=== PATIENT | male | born 1970 | race Caucasian/White ===

== ENCOUNTER 2023-01-14 09:01 | Outpatient (OUT) | payer BC, SELFPAY ==
[2023-01-14 09:25] LABS: Basophils Absolute Auto 0.1 10^3/uL (0.0-0.1); Basophils Percent Auto 0.8 % (0.2-2.0); Eosinophils Absolute Auto 0.3 10^3/uL (0.0-0.7); Eosinophils Percent Auto 2.3 % (0.9-7.0); Hematocrit 40.8 % (42.0-54.0); Hemoglobin 13.9 g/dL (14.0-18.0); Immature Granulocytes Abs Auto 0.03 10^3/uL (0.00-0.03); Immature Granulocytes Pct Auto 0.3 % (0.0-0.5); Lymphocytes Absolute Auto 2.2 10^3/uL (1.2-3.8); Lymphocytes Percent Auto 20.2 % (20.5-60.0); Mean Corpuscular HGB Conc 34.1 g/dL (29.9-35.2); Mean Corpuscular Hemoglobin 33.5 pg (25.9-34.0); Mean Corpuscular Volume 98.3 fL (80.0-94.0); Mean Platelet Volume 9.4 fL (9.5-13.5); Monocytes Absolute Auto 0.5 10^3/uL (0.3-0.8); Monocytes Percent Auto 4.9 % (1.7-12.0); Neutrophils Absolute Auto 7.7 10^3/uL (1.4-6.5); Neutrophils Percent Auto 71.5 % (43.0-75.0); Platelet Count 329 10^3/uL (150-450); Red Blood Count 4.15 10^6/uL (4.70-6.10); Red Cell Distribution Width 12.5 % (11.0-15.0); White Blood Count 10.7 10^3/uL (4.0-11.0)
[2023-01-14 10:02] LABS: Alanine Aminotransferase 18 U/L (16-63); Albumin Globulin Ratio 1.2; Albumin Level 3.9 g/dL (3.4-5.0); Alkaline Phosphatase 93 U/L (46-116); Anion Gap 9.9; Aspartate Amino Transferase 11 U/L (15-37); BUN Creatinine Ratio 11.9; Bilirubin Total 0.3 mg/dL (0.2-1.0); Calcium 9.3 mg/dL (8.5-10.1); Carbon Dioxide 30.7 mmol/L (21.0-32.0); Chloride 104 mmol/L (98-107); Chol HDL Ratio 4.6; Cholesterol 170 mg/dL (<=200); Estimated GFR (African America >60 (>=60); Estimated GFR (Non-African Ame >60 (>=60); Globulin 3.3 g/dL; Glucose 98 mg/dL (74-106); HDL Cholesterol 37 mg/dL (40-60); Potassium 3.6 mmol/L (3.5-5.1); Sodium 141 mmol/L (136-145); Total Protein 7.2 g/dL (6.4-8.2); Triglycerides 66 mg/dL (<=150); VLDL CHOLESTEROL 13.2 mg/dL
[2023-01-14 10:16] LABS: Estimated Average Glucose 105 mg/dL; Glycohemoglobin A1C 5.3 % (4.5-6.2)
[2023-01-14 10:41] LABS: Prostate Specific Antigen Scrn 0.62 ng/mL (<=4.00)
== END 2023-01-14 09:02 | disposition home or self-care (01) ==
PROVIDERS: PCP Family Medicine; Visit Provider Family Medicine
DX: Z00.00 Encounter for general adult medical examination without abnormal findings (principal); Z12.5 Encounter for screening for malignant neoplasm of prostate
CPT/HCPCS: 36415; 80053; 80061; 83036; 85025; G0103

== ENCOUNTER 2023-02-27 06:47 | Day surgery (SDC) | payer BC, SELFPAY ==
--- NOTE | 2023-02-27 | OP_ITS ---
OPERATION DATE: ??02/27/2023 PREOPERATIVE DIAGNOSIS:? Colorectal screening. POSTOPERATIVE DIAGNOSIS:? A 5 mm sigmoid polyp. PROCEDURE:? Colonoscopy to cecum with cold snare polypectomy x1. SURGEON:? Mauro Rojas M.D. ANESTHESIA:? Monitored anesthesia care. ESTIMATED BLOOD LOSS:? Less than 1 mL. INDICATIONS AND CONSENT:? Patient is a 53-year-old male presents for colorectal screening.? Indications, risks, benefits, alternatives of proceeding with colonoscopy were explained extensively to the patient, including the risks of bleeding, colon perforation or anesthetic complications.? All of his questions were answered.? Informed consent was obtained. PROCEDURE:? Patient brought to the operating room, placed in the left lateral decubitus position.? Monitored anesthesia care was provided.? Rectal exam was performed which showed no masses or blood.? The scope was inserted into the anal canal.? Under direct visualization was advanced.? With the aid of abdominal compression, it was advanced to the cecum where cecal markings were clearly identified.? Upon withdrawal of the scope, mucosal surfaces were carefully examined.? There were no mass lesions or inflammatory changes.? No significant diverticulosis.? In the sigmoid colon, at approximately 40 cm, there was noted to be a 5 mm sessile polyp that was removed with cold snare with good hemostasis.? The scope was retroflexed in the anal canal.? There were noted to be some prominent rectal veins.? No significant hemorrhoidal disease.? Scope was then withdrawn.? Patient tolerated procedure well, was sent to recovery room in good condition. likely f/u colonoscopy in 5 years, but will depend on pathology report. CC:? Pernell Mathew M.D. [facility]
[2023-02-27 07:01] VITALS: BP 140/90; PULSE 98; RESP 16; TEMP 36.6; O2SAT 96; BMI 21.1
[2023-02-27] MEDS: LACTATED RINGER'S SOLUTION 1,000 ML 50 ML IV (07:10)
[2023-02-27 07:48] VITALS: BP 114/70; PULSE 87; RESP 24; TEMP 36.8; O2SAT 99
[2023-02-27 08:03] VITALS: BP 127/85; PULSE 85; RESP 18; O2SAT 97
[2023-02-27 08:18] VITALS: BP 135/78; PULSE 76; RESP 18; O2SAT 97
== END 2023-02-27 08:20 | disposition home or self-care (01) ==
PROVIDERS: PCP Family Medicine; Visit Provider Surgery
PROC: (CPT 45385; principal; 2023-02-27 08:05)
DX: Z12.11 Encounter for screening for malignant neoplasm of colon (principal); D12.5 Benign neoplasm of sigmoid colon; I10 Essential (primary) hypertension; F17.210 Nicotine dependence, cigarettes, uncomplicated
CPT/HCPCS: 45385; 88305; J2704

== ENCOUNTER 2024-04-08 10:02 | Outpatient (OUT) | payer BC, SELFPAY ==
[2024-04-08 10:14] LABS: Basophils Absolute Auto 0.1 10^3/uL (0.0-0.1); Basophils Percent Auto 0.9 % (0.2-2.0); Eosinophils Absolute Auto 0.3 10^3/uL (0.0-0.7); Eosinophils Percent Auto 3.2 % (0.9-7.0); Hematocrit 41.2 % (42.0-54.0); Immature Granulocytes Abs Auto 0.02 10^3/uL (0.00-0.03); Immature Granulocytes Pct Auto 0.2 % (0.0-0.5); Lymphocytes Absolute Auto 2.4 10^3/uL (1.2-3.8); Lymphocytes Percent Auto 25.3 % (20.5-60.0); Mean Corpuscular Hemoglobin 33.3 pg (25.9-34.0); Mean Corpuscular Volume 98.1 fL (80.0-94.0); Mean Platelet Volume 9.2 fL (9.5-13.5); Monocytes Absolute Auto 0.5 10^3/uL (0.3-0.8); Monocytes Percent Auto 5.6 % (1.7-12.0); Neutrophils Absolute Auto 6.2 10^3/uL (1.4-6.5); Neutrophils Percent Auto 64.8 % (43.0-75.0); Platelet Count 332 10^3/uL (150-450); Red Cell Distribution Width 12.8 % (11.0-15.0); White Blood Count 9.6 10^3/uL (4.0-11.0)
--- OUTSIDE RECORDS SUMMARY | 2024-04-08 10:22 | XMS_ITS | CCD ---
Author Organization [facility] Care Team Providers Care Lasting Room Supervisor Name Role Phone REQUEST, DR NONE LISTED Attending Maria A MATHEW, DR MAIER Primary Care Unavailable REQUEST, NONE LISTED Admitting Unavaila javed REQUEST, NONE LISTED Consulting Maria A MATHEW, DR MAIER Primary Care Unavailable SARAI PEREZ Admitting Unavailable SARAI PEREZ Consulting Unavailable SARAI PEREZ Attending Unavailable Darrion Mathew Primary Care Physician Darrion Mathew Referring Unavailable Mauro DIGGS Attending Unavailable ANNE MARIELMauro Attending Unavailable NILLMauro Attending Unavailable Allergies Allergy Classification Reported Allergen(s) Allergy Type Date of Onset Reaction(s) Facility (1 source) No Known Medication Allergies; Translations: [No Known Medication Allergies] Propensity to adverse reactions (disorder) [facility] Repository Medications Current Medications Medication Drug Class(es) Dates Sig (Normalized) Sig (Original) lisinopril 20 mg oral tablet (2 sources) Angiotensin Converting Enzyme Inhibitor Start: 01-25-2023 take 1 tablet by mouth once daily lisinopril 20 mg Tab 20 mg = 1 tab(s), Oral, Daily, Refills(s) 0 Start Date: 01/25/23 Status: Ordered Problems Active Problems Problem Classification Problem Date Documented Da te Episodic/Chronic Deficiency and other anemia (2 sources) Anemia 01-25-2023 Episodic Essential hypertension (2 sources) Hypertensive disorder 01-25-2023 Chronic Other and unspecified benign neoplasm (2 sources) Benign neoplasm of sigmoid colon; Translations: [Benign neoplasm of sigmoid colon] Onset: 03-20-2023 Episodic Other screening for suspected conditions (not mental disorders or infectious disease) (1 source) Screening for malignant neoplasm of colon done; Translations: [Encounter for screening for malignant neoplasm of colon] Onset: 01-30-2023 Episodic Other upper respiratory infections (1 source) Acute sinusitis, unspecified; Translations: [ACUTE SINUSITIS UNSPECIFIED] Onset: 05-14-2022 Episodic Substance-related disorders (2 sources) Smoker 01-30-2023 Chronic Unclassified (3 sources) CONTACT W/AND (SUSP) EXPOS COVID-19; Translations: [CONTACT W/AND (SUSP) EXPOS COVID-19] Onset: 05-14-2022 Unclassified (2 sources) Body mass index 20-24 - normal 01-30-2023 Unclassified (2 sources) Patient encounter status 01-30-2023 Past or Other Problems Problem Classification Problem Date Documented Da te Episodic/Chronic Unclassified (1 source) CONTACT W/AND (SUSP) EXPOS COVID-19; Translations: [CONTACT W/AND (SUSP) EXPOS COVID-19] Onset: 05-09-2022 Results Test Name Value Interpretation Reference Range Facility Ambulatory Visit Summaryon 1 05-20-2022 Ambulatory Visit Summary INDIGO BRUNSON :1970 Visit Date:03/20/2023 Ambulatory Visit Instructions Your Diagnosis Benign neoplasm of sigmoid colon Your Care Team Attending Physician - CATERINA RAYMOND, Mauro Peña Primary Care Physician - Quincy RAYMOND, Darrion This Is Your Medications List Contact prescribing physician if questions or concerns lisinopril (lisinopril 20 mg Tab) Procedures Performed Colonoscopy (02/27/2023), Excision of lipoma. Medications What How Much When Instructions Unchanged lisinopril (lisinopril 20 mg Tab) 1 Tablets By Mouth Every day Contact prescribing physician if questions or concerns Allergies No Known Allergies No Known Medication Allergies Problems Ongoing - Any problem that you are currently receiving treatment for. Anemia Benign neoplasm of sigmoid colon BMI 22.0-22.9, adult HTN (hypertension) Screening for malignant neoplasm of colon Smoker Patient Survey You may receive a survey via text or e-mail asking about your office visit. Please share your experience with us by completing your survey. We appreciate your feedback and thank you for choosing us for your care. [facility] General Surgery Office/Clini c Noteon 03-20-2023 General Surgery Office/Clinic Note Chief Complaint colonoscopy recall HPI Staff 21 day post operative follow up post colonoscopy with sigmoid polypectomy. History of Present Illness s/p colonoscopy for colonoscopy with removal of 5 mm sigmoid polyp; doing well, denies abd pain or blood in stools. Review of Systems ROS - Provider Constitutional: no fever, no sweats, no weight loss. Eyes: no glasses, no blurred vision, no visual loss. ENMT: no dentures, no hoarseness, no swallowing difficulties, no hearing loss, no ear infection(s), no nose bleeds. Cardiovascular: normal blood pressure, no chest pain, regular heartbeat, no heart murmur. Respiratory: no shortness of breath, no cough, no asthma, no wheezing. Gastrointestinal: no nausea, no vomiting, no diarrhea, no constipation, no blood in stool, no change in bowel habits, no abdominal pain, no hepatitis. Genitourinary: no kidney stones, no urine infection, no dysuria. Musculoskeletal: no pain, no weakness. Skin: no changing moles, no rash, no skin lumps. Neurologic: no seizures, no epilepsy, no headache. Psychiatric: no emotional or psychiatric problem. Heme/Lymph: no bleeding problems, no anemia, no blood clots, no transfusions. Allergy/Immunologic : no swollen lymph nodes/glands, no IV drug abuse. Other: Additional ROS info: Except as noted in the above Review of Systems and in the History of Present Illness, all other systems have been reviewed and are negative or noncontributory. Assessment/Plan 1. Benign neoplasm of sigmoid colon (D12.5: Benign neoplasm of sigmoid colon) recommend surveillance colonoscopy in 5 years, call sooner if problems/questions. Follow-up No qualifying data available Problem List/Past Medical History Ongoing Anemia Benign neoplasm of sigmoid colon BMI 22.0-22.9, adult HTN (hypertension) Screening for malignant neoplasm of colon Smoker Historical No qualifying data Procedure/Surgical History Colonoscopy (02/27/2023), Excision of lipoma. Medications lisinopril 20 mg Tab, 20 mg= 1 tab(s), Oral, Daily Allergies No Known Allergies No Known Medication Allergies Social History Alcohol - Denies Alcohol Use, 01/30/2023 Substance Abuse Current, Marijuana, 1-2 times per week, 01/30/2023 Tobacco 10 or more cigarettes (1/2 pack or more)/day in last 30 days Tobacco Use:. Never Smokeless Tobacco Use:. Cigarettes, Started age 22.0 Years., 01/30/2023 Family History Hypertension: Father. Immunizations Vaccine Date Status Comments SARSCoV2 mRNA(jerman watts) vac 08/21/2021 Recorded SARS-CoV-2 (COVID-19) mRNA BNT-162b2 vax 10/17/2020 Recorded 2023-01-25: TPV40 SARS-CoV-2 (COVID-19) mRNA BNT-162b2 vax 09/26/2020 Recorded 2023-01-25: TPV40 [facility] Comment on above: Result Comment: Elec tronically Signed By: CATERINA RAYMOND, Mauro Cline\Date and Time Signed: 03/20/23 16:01 EST Reminderson 03-20-2023 Reminders -- From: Filomena Ro LPN To: N - Clinical; Sent: 03/20/2023 16:47:56 EST Show up: 01/28/2028 07:00:00 EDT Subject: colonoscopy recall Due Date/Time: 02/28/2028 07:00:00 EST Reminder/Recall Patient due for surveillance colonoscopy 02/27/2023 due to history of tubular adenoma. [facility] Pathology Noteon 03-06-2023 Pathology Note [id number]#1.00TIFF [facility] Outside Colonoscopyon 2022 Outside Colonoscopy [id number] BE#1.00TIFF [facility] Pre-Certification Formon Pre-Certification Form [id number] 60#1.00TIFF [facility] Insurance Correspondenceon 1 Insurance Correspondence [id number] 73#1.00TIFF [facility] Consent for Procedure/Surger yon 01-31-2023 Consent for Procedure/Surgery [id number]#1.00TIFF [facility] Ambulatory Visit Summaryon 1 Ambulatory Visit Summary INDIGO BRUNSON :1970 Visit Date:01/30/2023 Ambulatory Visit Instructions Your Diagnosis Screening for malignant neoplasm of colon Your Care Team Attending Physician - CATERINA RAYMOND, Mauro Peña Primary Care Physician - Darrion Mathew MD Referring Physician - Darrion Mathew MD This Is Your Medications List Contact prescribing physician if questions or concerns lisinopril (lisinopril 20 mg Tab) Procedures Performed Excision of lipoma. Discharge Vitals Heart Rate (Peripheral) 72 Respiratory Rate 16 Blood Pressure 126/86 Height 182.8 cm Height 72 in Weight 74.4 kg Weight 163.68 lb BMI 22.26 Medications What How Much When Instructions Unchanged lisinopril (lisinopril 20 mg Tab) 1 Tablets By Mouth Every day Contact prescribing physician if questions or concerns Allergies No Known Allergies No Known Medication Allergies Problems Ongoing - Any problem that you are currently receiving treatment for. Anemia BMI 22.0-22.9, adult HTN (hypertension) Screening for malignant neoplasm of colon Smoker Normal [facility] Formson 01-30-2023 Forms [id number] 199#1.00TIFF [facility] Lab Reportson 01-16-2023 Lab Reports [id number] E#1.00CD:127 Normal [facility] Physician Referralon 023 Physician Referral [id number] C9#1.00CD:127 [facility] Covid-19 PCR (CVDTBH)on 04-22 SARS-CoV-2 (COVID-19) RNA PATRICK+probe Ql (Unsp spec) Not detected Normal NOT DETECTED [facility] Comment on above: Result Comment: This test is not yet approved or cleared by the [place] FDA. When there are no FDA-approved or cleared tests available, and other criteria are met, FDA can make tests available under an emergency access mechanism called an Emergency Use Authorization (EUA). The EUA for this test is supported by the [place] of Health and Human Service's (HHS's) declaration that circumstances exist to justify the emergency use of in vitro diagnostics for the detection and/or diagnosis of the virus that causes COVID-19. This EUA will remain in effect (meaning this test can be used) for the duration of the COVID-19 declaration justifying emergency of IVDs, unless it is terminated or revoked by FDA (after which the test may no longer be used). When diagnostic testing is negative, the possibility of a false negative should be considered in the context of a patient's recent exposures and the presence of clinical signs and symptoms consistent with SARS-CoV-2. Performed By: #### C VDTBH #### [facility] [address] [place] [address] Dr. Amelia Nelson INFLUENZA A AND B [facility] 05-09 [facility] SEE BELOW Normal [facility] Comment on above: Result Comment: Nega tive for Flu A protein angiten. Infection due to Flu A cannot be ruled out. Flu A angiten in the sample may be below the detection limit of the test. Performed By: #### R SV, INFLUAB #### [facility] [address] [place] [address] Dr. Amelia Nelson INFLUBNMERGED WITH [facility] SEE BELOW Normal [facility] Comment on above: Result Comment: Nega tive for Flu B protein antigen. Infection due to Flu B cannot be ruled out. Flu B antigen in the sample may be below the detection limit of the test. Performed By: #### R SV, INFLUAB #### [facility] [address] [place] [address] Dr. Amelia Nelson INFLUENZA A AG Negative Normal NEGATIVE SEE COMMENT [facility] Comment on above: Performed By: #### R SV, INFLUAB #### [facility] [address] [place] [address] Dr. Amelia Nelson INFLUENZA B AG Negative Normal NEGATIVE SEE COMMENT [facility] Comment on above: Performed By: #### R SV, INFLUAB #### [facility] [address] [place] [address] Dr. Amelia Nelson RSVon 05-09-2022 RSV AG Positive Critically abnormal NEGATIVE [facility] Comment on above: Performed By: #### R SV, INFLUAB #### [facility] [address] [place] [address] Dr. Amelia Nelson CBC AUTO DIFFon 10-09-2021 BASO # 0.1 103/ul Normal 0.0-0.1 [facility] Comment on above: Performed By: #### D ATCBC #### [facility] [address] [place] [address] Dr. Amelia Nelson Basophils/100 WBC (Bld) 0.9 % Normal 0.2-2.0 [facility] Comment on above: Performed By: #### D ATCBC #### [facility] [address] [place] [address] Dr. Amelia Nelson EO # 0.3 103/ul Normal 0.0-0.7 [facility] Comment on above: Performed By: #### D ATCBC #### [facility] [address] [place] [address] Dr. Amelia Nelson Eosinophils/100 WBC (Bld) 2.4 % Normal 0.9-7.0 [facility] Comment on above: Performed By: #### D ATCBC #### [facility] [address] [place] [address] Dr. Amelia Nelson Erythrocyte distribution width (RBC) [Ratio] 12.4 % Normal 11.0-15.0 [facility] Comment on above: Performed By: #### D ATCBC #### [facility] [address] [place] [address] Dr. Amelia Nelson Hematocrit (Bld) [Volume fraction] 41.4 % Critically low 42.0-54.0 [facility] Comment on above: Performed By: #### D ATCBC #### [facility] [address] [place] [address] Dr. Amelia Nelson Hemoglobin (Bld) [Mass/Vol] 13.9 g/dL Critically low 14.0-18.0 [facility] Comment on above: Performed By: #### D ATCBC #### [facility] [address] [place] [address] Dr. Amelia Nelson IG # 0.03 10e3/ul Normal 0.00-0.03 [facility] Comment on above: Performed By: #### D ATCBC #### [facility] [address] [place] [address] Dr. Amelia Nelson IG % 0.3 % Normal 0.0-0.5 [facility] Comment on above: Performed By: #### D ATCBC #### [facility] [address] [place] [address] Dr. Amelia Nelson LYMPH # 2.3 103/ul Normal 1.2-3.8 [facility] Comment on above: Performed By: #### D ATCBC #### [facility] [address] [place] [address] Dr. Amelia Nelson Lymphocytes/100 WBC (Bld) 22.3 % Normal 20.5-60.0 [facility] Comment on above: Performed By: #### D ATCBC #### [facility] [address] [place] [address] Dr. Amelia Nelson MCH (RBC) [Entitic mass] 32.3 pg Normal 25.9-34.0 [facility] Comment on above: Performed By: #### D ATCBC #### [facility] [address] [place] [address] Dr. Amelia Nelson MCHC (RBC) [Mass/Vol] 33.6 g/dL Normal 29.9-35.2 [facility] Comment on above: Performed By: #### D ATCBC #### [facility] [address] [place] [address] Dr. Amelia Nelson MCV (RBC) [Entitic vol] 96.1 fL Critically high 80.0-94.0 [facility] Comment on above: Performed By: #### D ATCBC #### [facility] [address] [place] [address] Dr. Amelia Nelson MONO # 0.5 103/ul Normal 0.3-0.8 [facility] Comment on above: Performed By: #### D ATCBC #### [facility] [address] [place] [address] Dr. Amelia Nelson Monocytes/100 WBC (Bld) 4.8 % Normal 1.7-12.0 [facility] Comment on above: Performed By: #### D ATCBC #### [facility] [address] [place] [address] Dr. Amelia Nelson NEUT # 7.3 103/ul Critically high 1.4-6.5 [facility] Comment on above: Performed By: #### D ATCBC #### [facility] [address] [place] [address] Dr. Amelia Nelson Neutrophils/100 WBC (Bld) 69.3 % Normal 43.0-75.0 [facility] Comment on above: Performed By: #### D ATCBC #### [facility] [address] [place] [address] Dr. Amelia Nelson Platelet mean volume (Bld) [Entitic vol] 9.2 fL Critically low 9.5-13.5 [facility] Comment on above: Performed By: #### D ATCBC #### [facility] [address] [place] [address] Dr. Amelia Nelson PLT 374 103/ul Normal 150-450 [facility] Comment on above: Performed By: #### D ATCBC #### [facility] [address] [place] [address] Dr. Amelia Nelson RBC 4.31 106/ul Critically low 4.70-6.10 [facility] Comment on above: Performed By: #### D ATCBC #### [facility] [address] [place] [address] Dr. Amelia Nelson WBC 10.5 103/ul Normal 4.0-11.0 [facility] Comment on above: Performed By: #### D ATCBC #### [facility] [address] [place] [address] Dr. Amelia Nelson HARMONY- BMP WITH LIPIDon 2021 Anion gap [Moles/Vol] 12.6 mmol/L Normal [facility] Comment on above: Performed By: #### D ATPSA, DATBMP #### [facility] [address] [place] [address] Dr. Amelia Nelson Calcium [Mass/Vol] 8.8 mg/dL Normal 8.5-10.1 [facility] Comment on above: Performed By: #### D ATPSA, DATBMP #### [facility] [address] [address] [address] Amelia Nelson Chloride [Moles/Vol] 103 mmol/L Normal 98-107 [facility] Comment on above: Performed By: #### D ATPSA, DATBMP #### [facility] [address] [address] [address] Amelia Nelson Cholesterol [Mass/Vol] 185 mg/dL Normal <=200 [facility] Comment on above: Performed By: #### D ATPSA, DATBMP #### [facility] [address] [address] [address] Amelia Nelson Cholesterol in HDL [Mass/Vol] 46 mg/dL Normal 40-60 [facility] Comment on above: Performed By: #### D ATPSA, DATBMP #### [facility] [address] [address] [address] Amelia Nelson Cholesterol in LDL [Mass/Vol] 129.4 mg/dL Normal [facility] Comment on above: Performed By: #### D ATPSA, DATBMP #### [facility] [address] [address] [address] Amelia Nelson CO2 [Moles/Vol] 27.2 mmol/L Normal 21.0-32.0 [facility] Comment on above: Performed By: #### D ATPSA, DATBMP #### [facility] [address] [address] [address] Amelia Nelson Creatinine [Mass/Vol] 0.89 mg/dL Normal 0.70-1.30 [facility] Comment on above: Performed By: #### D ATPSA, DATBMP #### [facility] [address] [address] [address] Amelia Nelson EGFR-AF MAURITANIAN >60 Normal >=60 [facility] Comment on above: Performed By: #### D ATPSA, DATBMP #### [facility] [address] [address] [address] Amelia Nelson EGFR-NON AF MAURITANIAN >60 Normal >=60 [facility] Comment on above: Performed By: #### D ATPSA, DATBMP #### [facility] [address] [address] [address] Amelia Nelson Glucose [Mass/Vol] 104 mg/dL Normal 74-106 [facility] Comment on above: Performed By: #### D ATPSA, DATBMP #### [facility] [address] [address] [address] Amelia Nelson HDL NORMAL > or = 60 mg/dl - LOW CARDIOVASCULAR RISK <40 mg/dl - HIGH CARDIOVASCULAR RISK Normal [facility] Comment on above: Performed By: #### D ATPSA DATBMP #### [facility] [address] [address] [address] Amelia Nelson LDL CALC NORMAL SEE BELOW Normal [facility] Comment on above: Result Comment: <100 mg/dl OPTIMAL 100 - 129 mg/dl NEAR OR ABOVE OPTIMAL 130 - 159 mg/dl BORDERLINE HIGH 160 - 189 mg/dl HIGH >190 mg/dl VERY HIGH Performed By: #### D ATPSA DATBMP #### [facility] [address] [address] [address] Amelia Nelson Potassium [Moles/Vol] 3.8 mmol/L Normal 3.5-5.1 [facility] Comment on above: Performed By: #### D ATPSA, DATBMP #### [facility] [address] [address] [address] Amelia Nelson Sodium [Moles/Vol] 139 mmol/L Normal 136-145 [facility] Comment on above: Performed By: #### D ATPSA, DATBMP #### [facility] [address] [address] [address] Amelia Nelson Triglyceride [Mass/Vol] 48 mg/dL Normal <=150 [facility] Comment on above: Performed By: #### D ATPSA, DATBMP #### [facility] [address] [address] [address] Amelia Nelson Urea nitrogen [Mass/Vol] 9.0 mg/dL Normal 7.0-18.0 [facility] Comment on above: Performed By: #### D ATPSA, DATBMP #### [facility] [address] [address] [address] Amelia Nelson Urea nitrogen/Creatinine [Mass ratio] 10.1 mg/mg Normal [facility] Comment on above: Performed By: #### D ATPSA, DATBMP #### [facility] [address] [address] [address] Amelia Nelson VLDL CALC 9.6 mg/dL Normal [facility] Comment on above: Performed By: #### D ATPSA, DATBMP #### [facility] [address] [address] [address] Amelia Nelson Vital Signs Date Time Vital Sign Value Performing Clinician Faci lity 01-30-2023 14:22-0400 Blood Pressure Location Mauro DIGGS [facility] [place] 01-30-2023 14:22-0400 Diastolic blood pressure 86 mm[Hg] Mauro DIGGS [facility] [place] 01-30-2023 14:22-0400 Heart rate 72 /min Mauro KENNEYL [facility] [place] 01-30-2023 14:22-0400 Respiratory rate 16 /min Mauro DIGGS [facility] [place] 01-30-2023 14:22-0400 Systolic blood pressure 126 mm[Hg] Mauro KENNEYL [facility] [place] Encounters Encounter Date Encounter Type Care Provider Facility Start: 03-20-2023 End: 03-21-2023 ambulatory Mauro DIGGS Facility:[facility] Start: 03-20-2023 End: 03-20-2023 Patient encounter procedure Mauro DIGGS [facility] [place] Start: 02-27-2023 End: 02-28-2023 ambulatory Mauro DIGGS Facility:[id number] Start: 01-30-2023 End: 01-31-2023 ambulatory Darrion Mathew Facility:[facility] Start: 01-30-2023 End: 01-30-2023 Patient encounter procedure Mauro DIGGS [facility] [place] Start: 01-15-2023 ambulatory Darrion Mathew Facility:[facility] Start: 05-09-2022 End: 05-09-[address] DARRION MATHEW Facility:[facility] Start: 10-09-2021 End: 10-10-[address] QUINTEROS LISTED REQUEST Facility:[facility] Procedures Date Procedure Procedure Detail Performing Clinician Start: 02-27-2023 Colonoscopy Mauro RAND Start: 10-09-[address] QUINTEROS L ISTED REQUEST Comment on above: Performed By: #### D ATPSA, DATBMP #### [facility] [address] [place] [address] Dr. Amelia Nelson Excision of lipoma Mauro SANTOS Immunizations Immunization Date Immunization Notes Care Provider Fa cili 08-21-2021 SARS-CoV-2 mRNA (piddrplxbyp-ywph-irizq se) vaccine Mauro DIGGS [facility] 10-17-2020 SARS-CoV-2 (COVID-19 ) mRNA BNT-162b2 vax Mauro DIGGS [facility] Comment on above: Result Comment: 2022: TPV40 09-26-2020 SARS-CoV-2 (COVID-19 ) mRNA BNT-162b2 vax Mauro CATERINA [facility] Comment on above: Result Comment: 2022: TPV40 Payers Date Payer Category Payer Unknown [id number] 1970 Unknown [id number] 2.16.84 [id number] 1970 Unknown [id number] 2.16.8 [id number] 1970 Unknown [id number] 2.16.8 [id number] 1971 Unknown [id number] 2.16.8 [id number] 1959 Self-pay Unknown [id number] 2.16.84 [id number] Social History Date Type Detail Facility Start: 01-30-2023 Tobacco smoking status Heavy t obacco smoker (finding) [facility] Tobacco smoking status Never [facility] [place] Sex Assigned At Male [facility] Functional Status Date Assessment Result Facility 01-30-2023 Functional Status N/A [facility] 01-30-2023 Note Date & Type Note Facility 01-30-2023 Note Chief Complaint consultation for anemia HPI Staff 53 year old male presents on consultation from Dr. Mathew for anemia. Labs completed 01/14- H/H 13.9/40.8. Denies abdominal or rectal pain. No rectal bleeding or change in bowel habits. Denies nausea or vomiting. No unexplained weight loss. Denies dizziness, lightheadedness, SOB or fatigue. Never had colonoscopy in the past. No known family history of colon cancer. History of Present Illness 53 yo male with h/o htn, referred for colorectal screening; denies change in bms or blood in stools; no abdominal complaints; denies asa or NSAID use, no SBE prophylaxis; no abdominal operations or previous colonoscopy; no fmhx of GI malignancy or IBD; smokes daily. Review of Systems PHQ Score Initial Depression Screen Score: 0 ROS - Provider Constitutional: no fever, no sweats, no weight loss. Eyes: no glasses, no blurred vision, no visual loss. ENMT: no dentures, no hoarseness, no swallowing difficulties, no hearing loss, no ear infection(s), no nose bleeds. Cardiovascular: normal blood pressure, no chest pain, regular heartbeat, no heart murmur. Respiratory: no shortness of breath, no cough, no asthma, no wheezing. Gastrointestinal: no nausea, no vomiting, no diarrhea, no constipation, no blood in stool, no change in bowel habits, no abdominal pain, no hepatitis. Genitourinary: no kidney stones, no urine infection, no dysuria. Musculoskeletal: no pain, no weakness. Skin: no changing moles, no rash, no skin lumps. Neurologic: no seizures, no epilepsy, no headache. Psychiatric: no emotional or psychiatric problem. Heme/Lymph: no bleeding problems, no anemia, no blood clots, no transfusions. Allergy/Immunologic: no swollen lymph nodes/glands, no IV drug abuse. Other: Additional ROS info: Except as noted in the above Review of Systems and in the History of Present Illness, all other systems have been reviewed and are negative or noncontributory. Physical Exam Vitals & Measurements HR: 72(Peripheral) RR: 16 BP: 126/86 HT: 72 in HT: 182.8 cm WT: 74.4 kg WT: 163.68 lb BMI: 22.26 HEENT: normal conjunctiva, sclera clear, no scleral icterus, EOM intact, PERRLA, oral mucosa moist without lesions. Neck: trachea midline, no mass, symmetric, no thyromegaly or nodules, no adenopathy Respiratory: lungs CTA, respirations non labored. Cardiovascular: regular rate and rhythm, no murmur, no pedal edema or varicosities. Gastrointestinal: soft, non distended, no tenderness, no masses, no palpable hernias, diastasis recti no, no hepatosplenomegaly; normal bs Lymphatic: no cervical adenopathy, no supraclavicular adenopathy. Musculoskeletal: normal gait, digits and nails without infection, nodes, cyanosis, clubbing. Skin: no rashes, no lesions, no ulcers, no subcutaneous nodules, induration. Psychiatric/Neuro: oriented to time, place, person, judgement normal, affect appropriate for age, insight intact, no focal deficits. Tests: labs reviewedreview of old records completed , Discussed surgical options, risks, and possible complications with patient. Assessment/Plan 1. Screening for malignant neoplasm of colon (Z12.11: Encounter for screening for malignant neoplasm of colon) plan colonoscopy under anesthesia, informed consent obtained. Follow-up No qualifying data available Problem List/Past Medical History Ongoing Anemia BMI 22.0-22.9, adult HTN (hypertension) Screening for malignant neoplasm of colon Smoker Historical No qualifying data Procedure/Surgical History Excision of lipoma. Medications lisinopril 20 mg Tab, 20 mg= 1 tab(s), Oral, Daily Allergies No Known Allergies No Known Medication Allergies Social History Alcohol - Denies Alcohol Use, 01/30/2023 Substance Abuse Current, Marijuana, 1-2 times per week, 01/30/2023 Tobacco 10 or more cigarettes (1/2 pack or more)/day in last 30 days Tobacco Use:. Never Smokeless Tobacco Use:. Cigarettes, Started age 22.0 Years., 01/30/2023 Family History Hypertension: Father. Immunizations Vaccine Date Status Comments SARSCoV2 mRNA(pxlobbjqg-ykej-uqiymc) vac 08/21/2021 Recorded SARS-CoV-2 (COVID-19) mRNA BNT-162b2 vax 10/17/2020 Recorded 2023-01-25: TPV40 SARS-CoV-2 (COVID-19) mRNA BNT-162b2 vax 09/26/2020 Recorded 2023-01-25: [id number] [facility] Comment on above: Result Comment: Elec tronically Signed By: CATERINA RAYMOND, Mauro Peña\.martin\Date and Time Signed: 01/30/23 15:07 EDT Evaluation + Plan note Note Date & Type Note Facility Evaluation + Plan note No data available for this section [facility] Discharge instructions Note Date & Type Note Facility Hospital Discharge instructions No data available for this section [facility] [place] Progress note Note Date & Type Note Facility Progress note No data available for this section [facility] [place] Summary Purpose Family History No Family History Records Found No data available for this section No data available for this section No Family History Records Found Advance Directives No Advanced Directives Records FoundNo Advanced Directives Records Found Additional Source Comments (unrecognized sect ion and content) No Status Records FoundNo Status Records Found INFORMATION SOURCE (unrecogn ized section and content) DATE CREATED AUTHOR 05/15/2022 [facility] DATE CREATED AUTHOR AUTHOR'S ORGANIZ ATION 03/21/2023 [facility] Patient Care team informatio n (unrecognized section and content) Personnel Name: Darrion Mathew MD Address: Address: [address] [place] [address] Personnel Name: Darrion Mathew MD Address: Address: [address] [place] [address] FOR RECORDS PERTAINING TO PATIENTS WHO ARE OR HAVE BEEN ENROLLED IN A CHEMICAL DEPENDENCY/SUBSTANCEABUSE PROGRAM, SOME INFORMATION MAY BE OMITTED. This clinical summary was aggregated from multiple sources. Caution should be exercised in using it in the provision of clinical care. This summary normalizes information from multiple sources, and as a consequence, information in this document may materially change the coding, format and clinical context of patient data. In addition, data may be omitted in some cases. CLINICAL DECISIONS SHOULD BE BASED ON THE PRIMARY CLINICAL RECORDS. [facility]. provides no warranty or guarantee of the accuracy or completeness of information in this document.
[2024-04-08 10:57] LABS: Estimated Average Glucose 105 mg/dL; Glycohemoglobin A1C 5.3 % (4.5-6.2)
[2024-04-08 11:04] LABS: Alanine Aminotransferase 18 U/L (16-63); Albumin Globulin Ratio 1.2; Albumin Level 3.8 g/dL (3.4-5.0); Alkaline Phosphatase 108 U/L (46-116); Aspartate Amino Transferase 13 U/L (15-37); BUN Creatinine Ratio 6.3; Bilirubin Total 0.5 mg/dL (0.2-1.0); Calcium 9.2 mg/dL (8.5-10.1); Carbon Dioxide 28.6 mmol/L (21.0-32.0); Chloride 106 mmol/L (98-107); Chol HDL Ratio 4.4; Cholesterol 191 mg/dL (<=200); Estimated GFR (African America >60 (>=60 mL/min/1.73m^2); Estimated GFR (Non-African Ame >60 (>=60 mL/min/1.73m^2); Free T3 2.84 pg/mL (2.18-3.98); Globulin 3.3 g/dL; Glucose 109 mg/dL (74-106); HDL Cholesterol 43 mg/dL (40-60); Potassium 3.6 mmol/L (3.5-5.1); Sodium 144 mmol/L (136-145); Thyroid Stimulating Hormone 2.362 uIU/mL (0.358-3.740); Total Protein 7.1 g/dL (6.4-8.2); Triglycerides 40 mg/dL (<=150)
[2024-04-08 11:51] LABS: Prostate Specific Antigen Scrn 0.42 ng/mL (<=4.00)
== END 2024-04-08 10:03 | disposition home or self-care (01) ==
LOC: LAB 10:03
PROVIDERS: PCP Family Medicine; Visit Provider Family Medicine
DX: Z00.00 Encounter for general adult medical examination without abnormal findings (principal)
CPT/HCPCS: 36415; 80053; 80061; 83036; 84436; 84443; 84481; 85025; G0103

== ENCOUNTER 2024-06-22 09:05 | Outpatient (OUT) | payer BC, SELFPAY ==
--- NOTE | 2024-06-22 09:15 | CT_ITS ---
The [address] [address] Patient Name: INDIGO BRUNSON MRN: [id number] date: 1970 Sex: M Assigned Patient Location: CT Current Patient Location: CT Accession/Order Number: [id number] Exam Date: 06/22/2024 16:01 Report Date: 06/22/2024 16:02 At the request of: DARRION JUARES MD Procedure: CT lung screening low-dose CT CHEST WITHOUT CONTRAST, LOW DOSE SCREENING: CLINICAL DATA: A 54-year old current smoker, COMPARISON: None TECHNIQUE: Noncontrast axial CT scan images of the chest were obtained under the low dose screening CT protocol. Coronal and sagittal reconstructed images were also submitted. FINDINGS: Mediastinum : Suboptimal evaluation due to low-dose technique. Thoracic aorta appears normal in caliber. Pulmonary trunk appears nondilated. No pericardial effusion. No lymphadenopathy. The esophagus is grossly unremarkable. Lungs: No focal consolidation, pneumothorax or pleural effusion. Trachea and distal airways appear patent. Diffuse bronchial wall thickening. Emphysema. Mild lung scarring. No suspicious noncalcified pulmonary nodule or mass. Upper abdomen: No acute findings. Bony thorax and chest wall: Soft tissues surrounding the chest wall demonstrate no acute findings. Osseous structures demonstrate degenerative change. CT/CT lung screening low-dose IMPRESSION: NO SUSPICIOUS PULMONARY NODULE. LUNG - RADS Version 1.0 Assessment: Category 1, Negative (No nodules and definitely benign nodules). Management: Continue annual lung screening with LDCT in 12 months. Impression dictated by: Harvey Jacobsen Jr., D.O.06/22/2024 4:02 PM Dictation Location: [facility] TechnologiesEVERGREENHEALTHReplySend Electronically authenticated by: [id number] Y Date: 06/22/2024 16:02
== END 2024-06-22 09:06 | disposition home or self-care (01) ==
PROVIDERS: PCP Family Medicine; Visit Provider Family Medicine
DX: Z00.00 Encounter for general adult medical examination without abnormal findings (principal)
CPT/HCPCS: 71271